=== PATIENT | male | born 1945 | race African-American/Black ===

== ENCOUNTER 2017-02-21 01:30 | Emergency (ER) | payer MEDICARE, OTHER ==
[~2017-02-21] VITALS: Ht 170.2 cm; Wt 63.6 kg
[2017-02-21 03:25] LABS: INFLUENZA TYPE A NEGATIVE FOR TYPE A (NEGATIVE); INFLUENZA TYPE B NEGATIVE FOR TYPE B (NEGATIVE)
[2017-02-21 04:26] VITALS: BP 100/56
== END 2017-02-21 04:27 | disposition home or self-care (01) ==
LOC: EMS 01:32
DX: J40 Bronchitis, not specified as acute or chronic (principal); B34.9 Viral infection, unspecified; F17.210 Nicotine dependence, cigarettes, uncomplicated
CPT/HCPCS: 87804; 93005; 99285